=== PATIENT | male | born 1950 | race Caucasian/White ===

== ENCOUNTER → 2018-03-13 | Outpatient (REF) | payer MEDICARE, OTHER ==
[2018-03-13 19:51] LABS: INR 0.94; PROTHROMBIN TIME 12.7 SECONDS (12.4-14.5)
[2018-03-15 11:06] LABS: ALPHA FETOPROTEIN TUMOR QUANT 1.3 NG/ML (<8.1)
== END ==
LOC: M LAB REF 17:39
DX: R94.5 Abnormal results of liver function studies (principal); R93.3 Abnormal findings on diagnostic imaging of other parts of digestive tract; K76.0 Fatty (change of) liver, not elsewhere classified
CPT/HCPCS: 82105

== ENCOUNTER → 2020-06-11 | Outpatient (REF) | payer MEDICARE, BC, OTHER ==
[~2020-06-11] MED LIST: ASPI81CH33 PO; CALC1TAB11 PO; CALCTAB9 PO; INSUHUMDS SC; LANTINJ4 SC; LYRI300C PO; MULTCAP PO; OMEP20TA9 PO; TRAM50TA2 PO; VENL75CA2 PO; VITA-176 PO; VITA500T17 PO; XANA0.25 PO
[2020-06-11 18:18] LABS: INR 1.01
== END ==
LOC: M LAB REF 16:13
PROVIDERS: ATTEND Physician Assistant Medical
DX: K76.0 Fatty (change of) liver, not elsewhere classified (principal); R94.5 Abnormal results of liver function studies; Z12.11 Encounter for screening for malignant neoplasm of colon

== ENCOUNTER → 2020-11-17 | Outpatient (REF) | payer MEDICARE, OTHER ==
[2020-11-17 17:22] LABS: APPEARANCE, URINE HAZY (CLEAR); BACTERIA, URINE AUTO NEGATIVE (NEGATIVE); BILIRUBIN, URINE AUTO NEGATIVE (NEGATIVE); BLOOD, URINE BLOOD NEGATIVE (NEGATIVE); CALCIUM OXALATE CRYSTALS MODERATE; COLOR, URINE YELLOW (YELLOW); GLUCOSE, URINE (UA) AUTO NEGATIVE (NEGATIVE); KETONE, URINE AUTO TRACE mg/dL (NEGATIVE); LEUKOCYTE ESTERASE, URINE AUTO NEGATIVE (NEGATIVE); MUCUS, URINE SMALL (NEGATIVE); NITRITE, URINE AUTO NEGATIVE (NEGATIVE); PROTEIN, URINE AUTO NEGATIVE (NEGATIVE); RBC, URINE AUTO 1 /HPF (0-3); SPECIFIC GRAVITY URINE AUTO 1.025 (1.002-1.035); SQUAMOUS EPITHELIAL CELL UR AU 1 /HPF (0-6); WBC, URINE AUTO 2 /HPF (0-3)
== END ==
LOC: M LAB REF 16:55
PROVIDERS: ATTEND Internal Medicine
DX: Z01.818 Encounter for other preprocedural examination (principal)

== ENCOUNTER → 2021-07-05 | Outpatient (REF) | payer MEDICARE, BC, OTHER ==
[~2021-07-05] MED LIST changes: +ATOR1TAB19 PO; +D31000TA2 PO; +METO1TAB87 PO; +MULT-90 PO; +NOVOINJ3 SC; +OMEP20TA2 PO; -OMEP20TA9 PO; +OYST500C PO; +SYNT25TA PO
[2021-07-05 18:30] LABS: FOLATE > 24.0 NG/ML; VITAMIN B12 LEVEL 1875 PG/ML
== END ==
LOC: M LAB REF 16:59
PROVIDERS: ATTEND Internal Medicine
DX: Z98.84 Bariatric surgery status (principal)

== ENCOUNTER 2021-08-08 09:11 | Emergency (ER) | payer MEDICARE, BC, OTHER ==
[~2021-08-08] VITALS: Ht 190.5 cm; Wt 162.5 kg
[2021-08-08] MEDS ORDERED: ATROPINE SULF 1MG/10ML SYRINGE (J0461) ONE (09:12)
[2021-08-08] MEDS ORDERED: SODIUM BICARBONATE 8.4% INJ 50 ML SYRINGE ONE (09:12)
[2021-08-08] MEDS ORDERED: EPINEPHrine 1MG/10ML SYRINGE 1.5IN ONE (09:12)
[2021-08-08] MEDS ORDERED: methylPREDNISolone 125MG 2ML VIAL IV ONE (09:25)
[2021-08-08] MEDS ORDERED: NS 500 ML IV ONE (09:25)
[2021-08-08] MEDS: COMBIVENT RESPIMAT 100-20MCG INHALER 4GM INH SCH ×2 (09:41→09:56)
--- NOTE | 2021-08-08 09:45 | REP ---
INDICATION: DYSPNEA/COUGH. COMPARISON: 03/08/2006 TECHNIQUE: Portable FINDINGS: The technique utilized in obtaining the radiograph has magnified the cardiac silhouette and accentuated the interstitial markings. The cardiomediastinal silhouette is unchanged. Mild cardiomegaly accentuated by technique cannot be ruled out. Since the last examination a potential nodular density is seen in the left lower lobe possibly silhouetting out the apex of the left heart border. The pleural angles are sharp the lung gunderson are otherwise clear. There is no change in the osseous structures. IMPRESSION: Potential left lower lobe nodule as described above. CT examination of the chest is recommended for further evaluation. <Electronically signed by Hector Mccord > 08/08/21 [id number]
[2021-08-08 09:49] LABS: BASO # 0.1 10^3/uL (0.0-0.2); BASO % 0.5 % (0.0-1.0); EOS # 0.3 10^3/uL (0.0-0.5); EOS % 1.6 % (0.0-3.0); HEMATOCRIT 55.3 % (42.0-52.0); HEMOGLOBIN 17.7 g/dl (13.5-17.5); LYMPH # 2.5 10^3/uL (1.5-5.0); MEAN CORPUSCULAR HEMOGLOBIN 28.8 pg (27.0-33.0); MEAN CORPUSCULAR VOLUME 90.1 fl (80.0-96.0); MONO # 1.5 10^3/uL (0.0-0.8); MONO % 9.3 % (2.0-8.0); NEUTROPHILS % 72.9 % (36.0-66.0); PLATELET COUNT, AUTOMATED 260 10^3/uL (150-450); RED BLOOD COUNT 6.14 10^6/uL (4.30-6.10)
[2021-08-08 10:00] LABS: INR 0.97; PROTHROMBIN TIME 13.3 SECONDS (12.7-14.5)
[2021-08-08] MEDS ORDERED: ISOVUE-370 76% 100ML VIAL As Ordered ONE (10:03)
[2021-08-08 10:05] LABS: PARTIAL THROMBOPLASTIN TIME 28.1 SECONDS (25.9-37.0)
[2021-08-08] MEDS ORDERED: ASPIRIN 81 MG CHEW TABLET PO ONE (10:05)
[2021-08-08 10:18] LABS: WHITE BLOOD COUNT 16.4 10^3/uL (4.0-10.0)
[2021-08-08 10:32] VITALS: BP 121/67
[2021-08-08 10:37] LABS: ALBUMIN 3.3 GM/DL (3.2-5.2); BILIRUBIN,DIRECT 0.3 MG/DL (0.0-0.2); BILIRUBIN,TOTAL 0.8 MG/DL (0.2-1.0); THYROID STIMULATING HORMONE 8.07 uIU/ML (0.358-3.740); THYROXINE (T4) 9.5 UG/DL (4.5-12.0)
--- NOTE | 2021-08-08 10:54 | REP ---
INDICATION: sob ro pe. COMPARISON: Radiograph today. TECHNIQUE: CT angiogram chest was attempted. FINDINGS: CT pipe fitter ammonia image of the chest is grossly unremarkable. Dorsal column stimulator leads are present with the superior tip in the lower thoracic region. IMPRESSION: After the pipe fitter ammonia image was obtained the patient refused the CT exam. <Electronically signed by Tonio Ayala > 08/08/21 [id number]
[2021-08-08] MEDS ORDERED: TENECTEPLASE 50 MG KIT (TNKase) (J3101 PER 1MG) As Ordered ONE (11:03)
[2021-08-08] MEDS ORDERED: ALTEPLASE 100MG VIAL As Ordered ONE (11:04)
[2021-08-08] MEDS ORDERED: NOREPINEPHRINE 4 MG/4 ML AMP As Ordered ONE (11:11)
[2021-08-08] MEDS ORDERED: EPINEPHrine 1MG/10ML SYRINGE 1.5IN As Ordered ONE ×3 (11:20→11:23)
[2021-08-08] MEDS ORDERED: ATROPINE SULF 1MG/10ML SYRINGE (J0461) IV STA (12:39)
[2021-08-08] MEDS ORDERED: SODIUM BICARBONATE 8.4% INJ 50 ML SYRINGE IV STA ×2 (12:39→12:43)
[2021-08-08] MEDS ORDERED: EPINEPHrine 1MG/10ML SYRINGE 1.5IN IV STA ×9 (12:39→12:43)
[2021-08-08] MEDS ORDERED: NS 1,000 ML IV ONE (12:40)
[2021-08-08] MEDS ORDERED: ALTEPLASE 100MG VIAL IV ONE (12:55)
[2021-08-08] MEDS ORDERED: NOREPINEPHRINE BITARTRATE 8 MG in D5W 492 ML IV SCH (12:55)
--- NOTE | 2021-08-08 19:34 | ECGEPIP ---
[facility] - ED Test Date: 2021-08-08 Pat Name: ALANNAH KNIGHT Department: Room: - Gender: Male Store Hand: ELVIA : 1950 Requested By: Taiwo Maria Order Number: [id number] Reading MD: Taiwo Maria Measurements Intervals [place] Rate: 104 P: MT: QRS: -63 QRSD: 144 T: -4 QT: 428 QTc: 562 Interpretive Statements Undetermined rhythm Left axis deviation Right bundle branch block Septal infarct , age undetermined No prior ECG for comparison Electronically Signed on 08-08-2021 19:34:18 EDT by Taiwo Maria
== END 2021-08-08 17:36 | disposition expired ==
LOC: M ED 09:11
DX: I46.9 Cardiac arrest, cause unspecified (principal); I21.4 Non-ST elevation (NSTEMI) myocardial infarction; R09.2 Respiratory arrest; I45.10 Unspecified right bundle-branch block; R91.8 Other nonspecific abnormal finding of lung field; Z98.61 Coronary angioplasty status; Z87.891 Personal history of nicotine dependence; Z79.82 Long term (current) use of aspirin; Z79.4 Long term (current) use of insulin; Z79.899 Other long term (current) drug therapy
CPT/HCPCS: 31500; 36600; 71045; 71275; 80047; 80076; 82803; 83605; 83880; 84436; 84443; 84484; 85025; 85610; 85730; 87040; 87077; 87186; 87798; 92950; 93005; 93041; 94640; 96361; 96374; 96375; 99285; J0461; J2930